=== PATIENT | male | born 1965 ===

== ENCOUNTER → 2018-10-07 00:33 | Outpatient (REF) | payer OTHER, SELFPAY ==
[2018-10-10 15:09] LABS: HSV 2 IGG AB < 0.90 index (< 0.90); HSV1IGG < 0.90 index (< 0.90)
== END ==
LOC: LAB 00:33
PROVIDERS: Visit Provider Family Medicine
DX: Z11.3 Encounter for screening for infections with a predominantly sexual mode of transmission (principal)
CPT/HCPCS: 36415; 86695; 86696